=== PATIENT | female | born 1970 | race Caucasian/White ===

== ENCOUNTER 2022-02-13 19:50 | Emergency (ER) | payer BC, SELFPAY ==
[2022-02-13 20:34] VITALS: BP 175/104; PULSE 91; RESP 16; TEMP 37.1; O2SAT 96; BMI 28.3
--- NOTE | 2022-02-13 20:36 | CRLHL7_ITS ---
For Patients: As a result of the Century Cures Act, medical imaging exams and procedure reports are released immediately into your electronic medical record. You may view this report before your referring provider. If you have questions, please contact your health care provider. Indication: Trauma. Technique: Right wrist, 3 views. Comparison: None. Findings/Impression: Bones: Acute mildly displaced transverse fracture of the distal radius with dorsal angulation. Questionable subtle nondisplaced fracture of the distal ulna. Joint spaces: Unremarkable. Soft tissues: Unremarkable. Dictated by Abel Lopez MD @ 02/13/2022 9:07:15 PM (Electronically Signed)
--- NOTE | 2022-02-13 22:25 | ED.UPPEXIN ---
HPI - Extremity Injury (Upper) General Chief Complaint: Extremity Pain/Injury, Upper Stated Complaint: R Wrist injury, Slipped on ice Time Seen by Provider: 02/13/22 21:49 History of Present Illness HPI narrative: 52-year-old female with no significant chronic medical history presents to the ED after she slipped and fell on the ice taking out her garbage this evening. She fell backwards, attempting to catch herself, noted immediate pain in the right wrist. She also noted deformity. Rating the pain is 6/10, constant achy, worse if she attempts to move. No prior history of similar symptoms. She also fell onto her bottom but states that that is not painful and does not think it needs evaluation. No neurological changes, no lacerations or broken skin. Denies any recent illness or fever. Has not tried taking any medication to help with her pain. Past medical history notable for no significant long-term health problems. Surgical history is notable only for prior appendectomy, no long-term medications, no allergies. ROS is negative for other generalized, musculoskeletal or neurological complaints. Otherwise negative times 12 systems. Related Data Home Medications Medication Instructions Recorded Confirmed No Known Home Medications 02/13/22 02/13/22 Allergies Allergy/AdvReac Type Severity Reaction Status Date / Time No Known Drug Allergies Allergy Verified 02/13/22 20:34 PFSH [facility] Social History Smoking Status: Never smoker Do you use any of these nicotine containing products: None How often do you have a drink containing alcohol: never AUDIT-C Alcohol total score: 0 Exam Const: Vital Signs, click to edit/add: Vital Signs - 24 hr 02/13/22 20:34 02/13/22 22:42 Temperature 98.7 F 98.7 F Pulse Rate [Left P ulse Oximeter] 91 78 Respiratory Rate 16 16 Blood Pressure [Le ft Upper Arm] 175/104 H 154/91 H Pulse Oximetry 96 Oxygen Delivery Me thod Room Air Documenting provider has reviewed patient's vital signs: yes Common normals: no apparent distress General appearance: cooperative and well kempt HENMT: Common normals: normocephalic Head and scalp: normocephalic Face and sinus: normal facial exam Mouth: oral and palatal mucosa normal Throat: posterior oropharynx normal Eye: Common normals: conjunctivae normal and no scleral icterus Conjunctiva: conjunctiva(e) normal Resp: Common normals: normal respiratory effort and clear to auscultation bilaterally Effort & inspection: able to speak in complete sentences Auscultation: clear to auscultation bilaterally Cardio: Common normals: regular rate, regular rhythm, S1 normal heart sound, S2 normal heart sound, no murmurs and peripheral pulses 2+ throughout Rate: regular rate Rhythm: regular rhythm Heart sounds: S1 normal and S2 normal Peripheral pulses: pulses 2+ throughout Extremity: Other: Right elbow with normal range of motion. Right wrist with obvious dinner fork deformity at distal radius area. Normal range of motion of fingers at MCP and interphalangeal joints. No broken skin or lacerations noted. Left wrist grossly normal. Neuro: Speech: speech normal Motor exam: no tremor noted and no movement abnormalities noted Psych: Appearance: well kempt Attitude: engaged Insight: insight good Judgement: judgment good Skin: Common normals: no rashes or lesions noted General skin exam: no rashes or lesions noted Course Vital Signs Vital signs: Initial Vital Signs Temperature 98.7 F 02/13/22 20:34 Temperature Source Temporal Artery Scan 02/13/22 20:34 Pulse Rate 91 02/13/22 20:34 Respiratory Rate 16 02/13/22 20:34 Blood Pressure 175/104 H 02/13/22 20:34 Blood Pressure Mean 127 02/13/22 20:34 Blood Pressure Position Sitting 02/13/22 20:34 Pulse Oximetry 96 02/13/22 20:34 Oxygen Delivery Method 02/13/22 20:34 Vital Signs Temperature 98.7 F 02/13/22 20:34 Pulse Rate 91 02/13/22 20:34 Respiratory Rate 16 02/13/22 20:34 Blood Pressure 175/104 H 02/13/22 20:34 Pulse Oximetry 96 02/13/22 20:34 Oxygen Delivery Method 02/13/22 20:34 Temperature 98.7 F 02/13/22 22:42 Pulse Rate 78 02/13/22 22:42 Respiratory Rate 16 02/13/22 22:42 Blood Pressure 154/91 H 02/13/22 22:42 Pulse Oximetry 96 02/13/22 20:34 Oxygen Delivery Method 02/13/22 20:34 MDM - Extremity Injury (Upper) MDM Narrative Medical decision making narrative: Obvious fracture noted on clinical exam. X-rays performed. Confirming Colles fracture of distal radius. Counseled patient on management. Recommended hematoma block, reduction, splinting and orthopedic follow-up. She declines pain medication. Procedure: Hematoma block: Distal radius was cleansed with Betadine x3. 5 mL of 1% lidocaine without epinephrine was injected to the side of the fracture at the distal radius. This was well tolerated. With gentle traction, the slight angulation was reduced, seemed to slip in fairly easily. Good anatomic correction of deformity. Splinted in typical fashion with dorsal and palmar support. All questions answered. Work note given will need 1 handed work only until cleared by Orthopedics. Orthopedic follow-up in 2-5 days. Imaging Data Wrist x-ray: My impression: Distal radius fracture, I do not appreciate an ulnar fracture Radiologist's impression: Bones: Acute mildly displaced transverse fracture of the distal radius with dorsal angulation. Questionable subtle nondisplaced fracture of the distal ulna. Discharge Plan Discharge Clinical Impression: Closed fracture of right wrist Patient Disposition: Home, Self-Care Condition: Improved Instructions: Wrist Fracture in Adults (ED) Additional Instructions: As we discussed, I am not sure how much of your job you will be able to do has of this fracture. You are welcome to do any one-handed work that is available to you, knowing that this is use of your non dominant left hand. No lifting more than 10 lb until cleared by Orthopedics. This will take 6-8 weeks to heal completely. I do not think that this will require surgery but the orthopedic team will further determine this at your follow-up. Please do not get the splint wet. This will likely be replaced with a more long-term cast at your follow-up visit. The orthopedic team will call you tomorrow to schedule an appointment within a few days. As we discussed, use Tylenol and or ibuprofen as needed for pain. For your size, 600 mg of ibuprofen every 6 hours and 650 mg of Tylenol every 4 hours or 1000 mg every 6 hours as appropriate. It is common to have more pain at night. Any significant numbness or tingling in the fingers, cold extremity or new worrisome findings would be unexpected. Please call the orthopedic team for further guidance Activity Level: Activity as Tolerated Discharge Diet: Regular Prescriptions: No Action No Known Home Medications Follow Up/Referrals: Clark Paniagua MD [Staff Physician] - 2 Days (1st available Orthopedics, right wrist fracture) Stand Alone Forms: [employer] Info Instructions
[2022-02-13 22:42] VITALS: BP 154/91; PULSE 78; RESP 16; TEMP 37.1
== END 2022-02-13 23:13 | disposition home or self-care (01) ==
LOC: ED 22:52
PROVIDERS: Emergency Provider Family Medicine
DX: S52.531A Colles' fracture of right radius, initial encounter for closed fracture (principal); W00.9XXA Unspecified fall due to ice and snow, initial encounter
CPT/HCPCS: 25605; 73110; 99283

== ENCOUNTER 2022-02-15 14:48 | Outpatient (CLI) | payer BC, SELFPAY ==
[2022-02-15 21:59] LABS: Basophils Absolute Auto 0.09 K/uL (0.00-0.30); Basophils Percent Auto 0.9 % (0.0-3.0); Eosinophils Absolute Auto 0.11 K/uL (0.00-0.50); Eosinophils Percent Auto 1.1 % (0.0-7.0); Hematocrit 43.4 % (33.0-51.0); Immature Granulocytes Abs Auto 0.05 K/uL (0.00-0.30); Immature Granulocytes Pct Auto 0.5 %; Lymphocytes Percent Auto 19.2 % (20-44); Mean Corpuscular HGB Conc 35 gm/dL (32-36); Mean Corpuscular Hemoglobin 31 pg (26-34); Mean Corpuscular Volume 89 fL (80-100); Monocytes Percent Auto 6.9 % (0.0-11.0); Neutrophils Absolute Auto 7.16 K/uL (1.7-7.0); Neutrophils Percent Auto 71.4 % (42.0-72.0); Platelet Count* 207 K/uL (140-440); RDW Coefficient of Variation % 12.8 % (11.5-15.5); Red Blood Count 4.89 m/uL (4.00-5.20); White Blood Count* 10.02 K/uL (4.50-11.00)
[2022-02-15 22:03] LABS: Slide Review Reflex No
[2022-02-15 22:21] LABS: Chloride* 106 mmol/L (96-114); Sodium* 142 mmol/L (135-149)
[2022-02-15 22:24] LABS: Blood Urea Nitrogen* 14 mg/dL (7-30); Carbon Dioxide* 25 mmol/L (20-32); Creatinine* 0.7 mg/dL (0.5-1.5); Estimated Glomerular Filt Rate 103 ml/min
[2022-02-15 22:25] LABS: Calcium* 9.7 mg/dL (8.4-10.6); Glucose* 116 mg/dL (60-115); Potassium* 4.4 mmol/L (3.6-5.1)
== END 2022-02-15 14:49 | disposition home or self-care (01) ==
PROVIDERS: Visit Provider Nurse Practitioner Family
DX: Z01.818 Encounter for other preprocedural examination (principal)
CPT/HCPCS: 80048; 85025

== ENCOUNTER 2022-02-16 09:43 | Day surgery (SDC) | payer BC, SELFPAY ==
[2022-02-16] VITALS (7 sets, daily range): BP systolic 125–150; BP diastolic 75–96; PULSE 67–78; RESP 16; TEMP 36.5–37.1; O2SAT 95–98; BMI 30.7
[2022-02-16] MEDS: LACTATED RINGERS 1000 ML 1,000 ML 100 ML IV (08:30)
--- NOTE | 2022-02-16 11:00 | CRLHL7_ITS ---
For Patients: As a result of the Cures Act, medical imaging exams and procedure reports are released immediately into your electronic medical record. You may view this report before your referring provider. If you have questions, please contact your health care provider. Indication: RIGHT WRIST CRPP Technique: Two fluoroscopic images of the right wrist. Fluoroscopic time 8.7 seconds. IMPRESSION: Fluoroscopic guidance for closed reduction percutaneous fixation of distal radial fracture. Dictated by Brien Ellis MD @ 02/16/2022 3:04:55 PM (Electronically Signed)
[2022-02-16] MEDS: fentaNYL 100 MCG/2 ML inj IVP (11:50)
[2022-02-16] MEDS: MIDAZOLAM HCL 1 MG/ML inj IVP (11:50)
--- NOTE | 2022-02-16 12:04 | W.PM.NB ---
Nerve Block Nerve Block Time Seen by Provider: 12:00 Date Seen: 02/16/22 Type of block requested by surgeon for post-operative analgesia: axillary Side: right Time out performed: Yes Verification of patient name: Yes Verification of date of : Yes Site marking: site marked Name of person performing procedure: [place] Soto, if any: [place] Continuous monitoring Was continuous monitoring of O2 sat, B/P, manager cardiac cath, recorded every 15 minutes?: Yes Procedure Checklist: sterile prep, needles and gloves Ultrasound guided. Images saved: Yes Medications given in 5ml increments after negative aspiration: Ropivicaine %: 0.5 mL: 15 Needle gauge: 22 and Lidocaine %: 2 mL: 15 Needle gauge: 22 Patient tolerated procedure well: Yes Additional comments: Needle noted adjacent to nerve Block Charges Block Charge (with Pro Fee): Brachial Plexus Use of Ultrasound Machine for Block: Yes- US Guidance/pain block
[2022-02-16] MEDS: SODIUM CHLORIDE 0.9 % (FLUSH) 10 ML SYRINGE IVF (12:06)
--- NOTE | 2022-02-16 12:08 | SUR.PREOP ---
TIME?OUT:?1148 PT/RN/MDA?VERIFICATION?OF?SURGICAL?SITE right arm,?PROCEDURE Ax block,?AND?CONSENT OBTAINED?PRIOR?TO?INVASIVE?PROCEDURE.
--- NOTE | 2022-02-16 12:36 | P.ORPRC_ITS ---
Procedure Note Date of procedure: 02/16/22 Procedure: PREOPERATIVE DIAGNOSES: 1. Right distal radius fracture, closed, extra-articular, dorsally angulated 20?, shortened POSTOPERATIVE DIAGNOSES: 1. Right distal radius fracture, closed, extra-articular, dorsally angulated 20?, shortened. NAME OF OPERATION: 1. Right distal radius closed reduction percutaneous pinning 2. 81249 - intraoperative fluoroscopy up to 1 hour. SURGEON: Clark Paniagua MD HOUSING COUNSELOR: Tyshawn DOZIER - Of note, an university administrative assistant was critical for this case to aide in patient positioning, limb manipulation, pin retraction, closure/dressing, and splinting. ANESTHESIA: Axillary + MAC EBL: Less than 1 mL IMPLANTS: 0.062 in K-wire (x2).] TOURNIQUET: None. COMPLICATIONS: None evident INDICATIONS: The patient is a pleasant, 52-year-old female who sustained a right wrist injury after a fall within the last couple days. They had difficulty with use of the extremity and deformity. Workup included xrays which revealed a dorsally angulated distal radius fracture. Given these findings, surgery was recommended to improve the position and stablize the fracture. PROCEDURE: Following a thorough discussion of risks, benefits, and alternatives, consent was obtained and the operative extremity was marked. The patient was brought to the operating room and placed supine on the operating table. Induction of anesthesia was achieved. Appropriate time out was performed identifying proper patient, site and procedure. 1 g IV Ancef was administered within 1 hour of incision preoperatively. The right upper extremity was prepped and draped in the appropriate sterile fashion using ChloraPrep. Closed reduction with manipulation was performed. C- arm fluoroscopic imaging was obtained intraoperatively to confirm the improved position of the distal radius. The K-wire was selected and utilized initially from distal towards proximal and dorsal to volar after closed reduction was performed. A 2nd K-wire selected and placed in a similar location but further ulnar. This allowed good control of the distal radial fracture, and stabilization accordingly. C-arm confirmed the pins to be extra-articular. Betadine-soaked gauze was wrapped around the pin sites, bulky dressing applied, and volar dorsal splint was [id number]. Patient was woken from anesthesia and transferred the PACU in stable condition. PLAN: 1. Elevate operative extremity. 2. Ice, acetominphen or ibuprofen PRN. 3. Percocet for pain as needed. 4. Finger ROM as tolerated. 5. Follow up with me in 10-16 days for wound check and splint removal - maintain betadine gauze. xray with pins in place - 2 views Left wrist and ahumada sition to short-arm cast. Follow up at 5 weeks postop for cast removal and pin removal
--- NOTE | 2022-02-16 12:59 | W.ANESCHARGE ---
Anesthesia Charges Start Date/Time Anesthesia Start Date: 02/16/22 Anesthesia Start Time: 12:13 Stop Date/Time Anesthesia Stop Date: 02/16/22 Anesthesia Stop Time: 12:53 Summary Emergency: No
--- NOTE | 2022-02-16 13:04 | W.ANESCHARGE ---
Anesthesia Charges Start Date/Time Anesthesia Start Date: 02/16/22 Anesthesia Start Time: 12:13 Stop Date/Time Anesthesia Stop Date: 02/16/22 Anesthesia Stop Time: 12:53 Summary Emergency: No
== END 2022-02-16 14:16 | disposition home or self-care (01) ==
PROVIDERS: PCP Nurse Practitioner Family; Visit Provider Orthopaedic Surgery Sports Medicine
PROC: (CPT 25606; principal; 2022-02-16 11:00)
DX: S52.551A Other extraarticular fracture of lower end of right radius, initial encounter for closed fracture (principal)
CPT/HCPCS: 25606; 01820; 01830; 64415; 73100; 76000; 76942; A4580; J1100; J2250; J2405; J2704; J2795; J3010; J7120